=== PATIENT | female | born 1960 | race Hispanic/Latino ===

== ENCOUNTER 2019-01-02 17:01 | Inpatient (IN) | payer OTHER | END 2019-01-07 16:39 | disposition home or self-care (01) | LOC: EDH 17:01 → 2AH 01-04 17:16 → 2CH 01-03 15:26 → EDHIP 22:36 | DX: N13.6 Pyonephrosis (principal); F32.3 Major depressive disorder, single episode, severe with psychotic features; I10 Essential (primary) hypertension; F32.9 Major depressive disorder, single episode, unspecified ==

== ENCOUNTER 2019-02-15 17:18 | Observation (INO) | payer OTHER ==
[~2019-02-15] VITALS: Ht 154.9 cm; Wt 73.5 kg
[~2019-02-15 17:18] MED LIST: ASPI-555 PO; ATOR40TA69 PO; BUPR300T54 PO; BUSP15TA3 PO; CANA300T PO; ERGO500014 PO; HYDR25TA PO; ICOS1CAP PO; INSU100I13 SQ; LOSA100T58 PO; METO25 PO; ONDA4TAB4 PO; SIMV40TA59 PO; SULF1TAB3 PO; TRAZ-185 PO
[2019-02-15 17:50] LABS: BASOPHILS % (AUTO) 0.7 % (0.0-5.0); EOSINOPHILS % (AUTO) 2.5 % (0.0-8.0); LYMPHOCYTES % (AUTO) 31.4 % (21.0-51.0); MEAN CORPUSCULAR HEMOGLOBIN 27.9 pg (27.0-33.0); MEAN CORPUSCULAR HGB CONC 34.2 g/dL (32.0-36.0); MEAN CORPUSCULAR VOLUME 81.4 fL (79-99); MONOCYTES % (AUTO) 9.6 % (3.0-13.0); NEUTROPHILS % (AUTO) 55.8 % (40.0-77.0); NUCLEATED RED BLOOD CELLS 0.1 % (0.0-0.19); PLATELET COUNT (AUTO) 249 K/uL (130-400); RED BLOOD CELL COUNT(AUTO) 4.05 MIL/uL (4.00-5.50); RED CELL DISTRIBUTION WIDTH 13.6 % (11.0-15.5); WHITE BLOOD COUNT (AUTO) 8.1 K/uL (4.8-10.8)
[2019-02-15 18:02] LABS: CREATININE 1.7 mg/dL (0.5-1.5); POTASSIUM 3.4 mmol/L (3.5-5.1)
[2019-02-15 18:06] LABS: ALBUMIN 1.7 g/dL (3.5-5.0); BILIRUBIN,TOTAL 0.2 mg/dL (0.2-1.0); TOTAL PROTEIN, SERUM 6.1 g/dL (6.0-8.3)
[2019-02-15 18:07] LABS: B-TYPE NATRIURETIC PEPTIDE 389 pg/mL (0-100)
[2019-02-15] MEDS ORDERED: NITROGLYCERIN 1GM/1 INCH PACKET TD ONE (18:25)
[2019-02-15] MEDS ORDERED: METOPROLOL TARTRATE 1 MG/ML 5ML VIAL IV ONE (19:16)
[2019-02-15 19:41] LABS: APPEARANCE,URINE Cloudy (CLEAR); BILIRUBIN,URINE Negative (NEGATIVE); COLOR,URINE Yellow (YELLOW); GLUCOSE, URINE (UA) >=1000 mg/dL (NEGATIVE); KETONES,URINE Negative (NEGATIVE); LEUKOCYTE ESTERASE ,URINE Small (NEGATIVE); NITRATE,URINE Negative (NEGATIVE); OCCULT BLOOD,URINE Moderate (NEGATIVE); PH,URINE 5.5 (5.0-8.0); PROTEIN,URINE >=1000 mg/dL (NEGATIVE); UROBILINOGEN,URINE 0.2 mg/dL (0.2-1.0)
[2019-02-15 20:21] LABS: BACTERIA,URINE Many /HPF (None Seen); RBC,URINE None Seen /HPF (0-1)
[2019-02-15 20:22] LABS: SQUAMOUS EPITHELIAL CELL,UR None Seen /HPF (0-2); WBC,URINE 26-50 /HPF (0-1)
[2019-02-15] MEDS ORDERED: CLONIDINE HCL 0.1 MG TABLET ONE (20:22)
[2019-02-15] MEDS ORDERED: HYDRALAZINE HCL 25 MG TABLET ONE (20:49)
[2019-02-15] MEDS ORDERED: SODIUM CHLORIDE 0.9% 50 ML IV ONE (20:53)
[2019-02-15] MEDS ORDERED: CEFTRIAXONE SODIUM 1 GM ONE (20:53)
[2019-02-16] MEDS ORDERED: ACETAMINOPHEN 325 MG TAB PO PRN ×2 (01:00)
[2019-02-16] MEDS ORDERED: HYDROCODONE/ACETAMINOPHEN 5/325 MG TAB PO PRN (01:00)
[2019-02-16] MEDS ORDERED: CLONIDINE HCL 0.1 MG TABLET PO PRN (01:00)
[2019-02-16] MEDS ORDERED: METOPROLOL TARTRATE 1 MG/ML 5ML VIAL IV PRN (01:00)
[2019-02-16] MEDS ORDERED: ZOLPIDEM TARTRATE 5 MG TAB PO PRN (01:00)
[2019-02-16] MEDS ORDERED: HYDRALAZINE HCL 20 MG/ML VIAL IV PRN (01:00)
[2019-02-16] MEDS ORDERED: GUAIFENESIN-DM 200/20 MG 10 ML PO PRN (01:00)
[2019-02-16] MEDS ORDERED: ALPRAZOLAM 0.25 MG TABLET PO PRN (01:00)
[2019-02-16] MEDS ORDERED: HYDROMORPHONE HCL 2 MG/ML VIAL IVP PRN (01:00)
[2019-02-16] MEDS ORDERED: LACTULOSE 20 GM/30 ML UDCUP PO PRN (01:00)
[2019-02-16 01:40] VITALS: BP 194/89
--- NOTE | 2019-02-16 01:40 | NUR ---
Admission note: Admitted pt per stretcher from ER. Pt fully awake and responsive. Assisted to transfer in bed and positioned comfortably.Oriented to room and used of call light. Policies and procedures explained. Verbalized understanding. Assessment done. VS checked and recorded. ( See CPOE flow sheet for full assessment) Attached to Telemetry with SR result. Has right Nephrostomy tube ( fr.8) and was draining a yellow-colored urine. Dressing to site cleansed and changed. Plan of care initiated. Monitored and observed for any changes in condition. Cared for and needs attended. to bring home meds. Distress / discomfort not noted. Endorsed to AM RN accordingly.
[2019-02-16] MEDS ORDERED: PHARMACY COMMUNICATION MISC SCH (01:45)
[2019-02-16] MEDS: IPRATROPIUM/ALBUTEROL SULFATE 3 ML SOLUTION IH SCH ×4 (01:47→13:34)
[2019-02-16] MEDS: ZOSYN 3.375GM+NS 50ML 50 ML IV SCH ×2 (02:51→09:19)
[2019-02-16 04:37] VITALS: BP 203/97
[2019-02-16 08:00] VITALS: BP 160/81
[2019-02-16 12:00] VITALS: BP 156/76
--- NOTE | 2019-02-16 13:42 | NUR ---
DCP CM met with pt discussed dc plans. Pt is independent prior to admission, lives at home with spouse. Has a provider. Denies any other equipments/services. Pt feels safe to go back home, spouse able to assist with transportation and needs as necessary. DC plan to home once stable. CM to cont to follow up. Addendum: 02/16/19 at 1343 by LINDY REYNA LVN CM Amended: Links added.
[2019-02-16] MEDS ORDERED: GLUCAGON 1MG KIT 1 MG ML IM PRN (15:00)
[2019-02-16] MEDS ORDERED: DEXTROSE 50%-WATER 50 ML DISP.SYRIN IV PRN (15:00)
[2019-02-16] MEDS ORDERED: AMLODIPINE BESYLATE 5 MG TAB PO SCH (15:45)
[2019-02-16 16:00] VITALS: BP 181/96
[2019-02-16] MEDS ORDERED: INSULIN HUMULIN R 100 UNIT/ML 3ML SQ SCH (16:30)
[2019-02-16] MEDS ORDERED: METOPROLOL TARTRATE 25 MG TAB ONE (17:10)
--- NOTE | 2019-02-16 17:55 | NUR ---
bp 145/82 hr 72
[2019-02-16 18:14] VITALS: BP 145/81
--- NOTE | 2019-02-16 18:45 | NUR ---
PT D/C HOME USING TEACH BACK TECHNIQUE RE; Monitor blood pressure at home, Follow up At Dr. Cristhian Galan office you will need Obstructive sleep Apnea work up as out patient at phone [phone] D/C MEDICATION INSTRUCTION: <add norvasc 5mg po daily to regimen, dose prior to discharge given, add metoprolol 25mg po bid to regimen, dose prior to discharge given, Resume home medication regimen DC FOLLOW UP: Follow up with primary doctor within 1 week Follow up with DR. Cristhian Jones in 2 weeks for obstructive sleep apnea evaluation as outpatient. call to set up appointment. Follow up with Sharan per his recommendation for nephrostomy tube call to set up an appointment or keep same appointment at phone; [phone] FOLLOW UP WITH YOUR PRIMARY DOCTOR IN 2-3 DAYS. FOR MANAGEMENT OF HIGH BLOOD PRESSURE. MEASURE YOUR BLOOD PRESSURE TWICE A DAY FOR 1 WEEK AND TAKE RESULTS TO YOUR PRIMARY DOCTOR. MAKE SURE TO TAKE BLOOD PRESSURE MEDICATIONS RECOMMENDED TO PREVENT HYPERTESIVE EMERGENCY. CALL 911 IF SHORNTNESS OF BREATH OR CHEST PAIN DOES NOT RESOLVE WITH REST.
[2019-02-16] MEDS ORDERED: METOPROLOL TARTRATE 25 MG TAB PO SCH (21:00)
[2019-02-17] MEDS ORDERED: AMLODIPINE BESYLATE 5 MG TAB PO SCH (09:00)
== END 2019-02-16 19:45 | disposition home or self-care (01) ==
LOC: EDH 17:18 → EDHIP 23:57 → 3AH 02-16 01:17
PROVIDERS: ADMIT Internal Medicine; ATTEND Internal Medicine
DX: Z43.6 Encounter for attention to other artificial openings of urinary tract (principal); I10 Essential (primary) hypertension; G47.33 Obstructive sleep apnea (adult) (pediatric); E11.9 Type 2 diabetes mellitus without complications; N39.0 Urinary tract infection, site not specified; E66.9 Obesity, unspecified; Z79.899 Other long term (current) drug therapy
CPT/HCPCS: 36415; 70450; 71045; 80053; 81001; 82550; 82948 ×3; 83880; 84484 ×2; 85025; 87077 ×2; 87088; 87186 ×2; 93005 ×2; 94640 ×3; 94664; 96365; 96366; 96372; 99284; G0378 ×19; J0360; J0696; J1815; J2543 ×2; J3490

== ENCOUNTER → 2019-04-12 | Outpatient (CLI) | payer OTHER | END | disposition home or self-care (01) | LOC: RAH 12:28 | PROVIDERS: ATTEND Urology | DX: N20.0 Calculus of kidney (principal); M47.815 Spondylosis without myelopathy or radiculopathy, thoracolumbar region; Z93.6 Other artificial openings of urinary tract status | CPT/HCPCS: 74018; 76100 ==

== ENCOUNTER → 2019-05-05 | Outpatient (CLI) | payer OTHER | END | disposition home or self-care (01) | LOC: RAH 10:51 | PROVIDERS: ATTEND Urology | DX: N20.0 Calculus of kidney (principal) | CPT/HCPCS: 74018; 76100 ==